=== PATIENT | male | born 2000 | race Caucasian/White ===

== ENCOUNTER 2020-11-30 01:13 | Emergency (ER) | payer SELFPAY ==
[2020-11-30] MEDS ORDERED: LORazepam 0.5 MG (ATIVAN) TABLET PO STA (01:47)
[2020-11-30 01:53] VITALS: BP 129/81
--- NOTE | 2020-11-30 01:53 | ED Chest Pain ---
General Chief Complaint: Chest Pain Stated Complaint: CHEST PAIN/LEFT ARM NUMBNESS Nursing Triage Note: Pt complaining of chest tightness that started a couple of days ago and increased tonight. Source: patient, family Exam Limitations: no limitations History of Present Illness Date Seen by Provider: Nov 30, 2020 Time Seen by Provider: 01:15 Initial Comments Patient is a 20-year-old male with history of anxiety who presents with subster nal chest heaviness with numbness to his left arm. Symptoms began approximately 1 hour prior to ED arrival while talking on the phone to his girlfriend. He also reports some chest discomfort described as pleurisy over the past 2 days. The pleuritic component with shortness of breath of since improved. Numbness in the arm has resolved.. Patient states he was evaluated by his PCP approximately a month ago for shortness of breath. He was evaluated for possible asthma and due to tachycardia with a reported rate of 112 he was referred to a supervisor [employer]. He states that since this that time he has been checking his blood pressure and heart rate daily. Patient works as a cocktail lounge manager and denies exertional chest pain when performing his work. He does not have shortness of breath at rest no nausea vomiting or sweats. Denies abdominal pain or acid reflux. Denies alcohol use, tobacco and drug use. No other symptoms or complaints. Timing/Duration: 1 hour Severity/Quality: other Location: other Radiation: other Activities at Onset: other Prior CP/Workup: other Modifying Factors: improves with other Allergies and Home Medications Allergies Coded Allergies: No Known Drug Allergies (Unverified , 11/30/20) Patient Home Medication List Home Medication List Reviewed: Yes Review of Systems Review of Systems Constitutional: see HPI EENTM: See HPI Respiratory: See HPI Cardiovascular: See HPI Gastrointestinal: See HPI Genitourinary: See HPI Musculoskeletal: see HPI Skin: no symptoms reported Psychiatric/Neurological: See HPI Endocrine: See HPI Hematologic/Lymphatic: See HPI All Other Systems Reviewed Negative Unless Noted: Yes Past Bjoeulm-Akqnoy-Rapbmq Hx Patient Social History Tobacco Use?: Yes Use of E-Cig and/or Vaping dev: No Substance use?: No Alcohol Use?: No Pt feels they are or have been: No Immunizations Up To Date COVID19 Vaccine Student Teacher: Moderna Physical Exam Vital Signs Vital Signs - First Documented 11/30/20 01:15 Pulse 103 Resp 20 B/P (MAP) 151/93 (112) Pulse Ox 98 O2 Delivery Room Air Capillary Refill : Less Than 3 Seconds Height, Weight, BMI Height: '" Weight: lbs. oz. kg; BMI Method: General Appearance: No Apparent Distress, WD/WN, Anxious HEENT: PERRL/EOMI, Normal ENT Inspection Neck: Full Range of Motion, Non Tender, Supple Respiratory: Chest Non Tender, Lungs Clear Cardiovascular: Regular Rate, Rhythm, No Edema, Other (Negative Homans signs.) Gastrointestinal: Non Tender, Soft Extremity: Normal Range of Motion, Non Tender, No Calf Tenderness Focused Exam Sepsis Stage: Ruled Out Progress/Results/Core Measures Results/Orders My Orders Orders - JENNIFER JACOME DO Ekg Tracing (11/30/20 01:24) Lorazepam Tablet (Ativan Tablet) (11/30/20 01:47) Vital Signs/I&O 11/30/20 01:15 Pulse 103 Resp 20 B/P (MAP) 151/93 (112) Pulse Ox 98 O2 Delivery Room Air Blood Pressure Mean: 112 Departure Communication (Admissions) EKG: Normal sinus rhythm, normal VA, QRS, QTc intervals. No acute ST-T wave changes. Nonexertional chest pain with high background anxiety state. Patient symptoms are highly suggestive of anxiety. Normal physical exam. Normal EKG. Lab work not indicated at this time. Will discharge home with prescription of anxiety and stress medication with instructions to follow-up with his PCP and/or supervisor [employer] as scheduled. Return precautions reviewed. Patient verbalizes understanding and agreement discharge instructions prior to departure. Impression Primary Impression: Chest pain Additional Impression: Anxiety state Disposition: HOME, SELF-CARE Condition: Stable Departure-Patient Inst. Decision time for Depature: 01:55 Referrals: NO,LOCAL PHYSICIAN (PCP/Family) Primary Care Physician Patient Instructions: Anxiety, Adult (DC), Chest Pain (DC) Add. Discharge Instructions: Your were evaluated in the emergency department for chest tightness and left arm numbness. An EKG was performed and is normal. Your exam is consistent with chest discomfort and arm numbness from an anxiety state. Please go home and rest and follow-up with your PCP and/or supervisor [employer] as scheduled. You may take Ativan if symptoms return. Please do not drive or perform any other potentially dangerous activity All discharge instructions reviewed with patient and/or family. Voiced underst anding. Scripts Lorazepam (Ativan) 1 Mg Tablet 1 MG SL Q8H PRN for ANXIETY for 3 Days, #10 TAB Prov: JENNIFER JACOME DO 11/30/20 JENNIFER JACOME DO Nov 30, 2020 01:53
[2020-11-30] MEDS ORDERED: LORA-405 SL (01:58)
== END 2020-11-30 02:01 | disposition home or self-care (01) ==
LOC: ER FS 01:20
DX: R07.9 Chest pain, unspecified (principal); F41.9 Anxiety disorder, unspecified; Z72.0 Tobacco use
CPT/HCPCS: 93005